=== PATIENT | female | born 1975 | race African-American/Black ===

== ENCOUNTER 2017-05-23 17:51 | Emergency (ER) | payer SELFPAY ==
[2017-05-23 18:34] LABS: #Basophils 0.1 thou/uL (0.0-0.2); #Eosinphils 0.1 thou/uL (0.0-0.7); #Lymphocytes 1.7 thou/uL (1.20-3.40); #Monocytes 0.5 thou/uL (0.11-0.59); #Neutrophils 3.7 thou/uL (1.40-6.50); %Basophils 1.4 % (0.0-1.0); %Eosinophils 2.2 % (0.0-10.0); %Lymphocytes 28.1 % (21.0-51.0); %Monocytes 7.7 % (0.0-10.0); Hematocrit 42.4 % (36.0-47.0); Mean Platelet Volume 6.5 fL (7.4-10.4); Red Blood Cell (RBC) Count 4.53 mill/uL (4.20-5.40); White Blood Cell (WBC) Count 6.1 thou/uL (4.8-10.8)
[2017-05-23 18:56] LABS: ALT (SGPT) 17 U/L (8-55); AST (SGOT) 20 U/L (5-34); Alkaline Phosphatase 86 U/L (40-150); Anion Gap 14 mmol/L (10-20); BUN (Urea Nitrogen) 11 mg/dL (7.0-18.7); Bilirubin, Total 0.3 mg/dL (0.2-1.2); Calc. Creatinine Clearance 0 mL/min (70-130); Calcium 8.9 mg/dL (7.8-10.44); Carbon Dioxide 26 mmol/L (22-29); Chloride 101 mmol/L (98-107); Estimated GFR-MDRD 74; Globulin 3.3 g/dL (2.4-3.5); Protein, Total 7.3 g/dL (6.0-8.3)
[2017-05-23 19:24] LABS: Bilirubin Negative (Negative); Blood, Urine Negative (Negative); Glucose, Urine (Dipstick) Negative (Negative); Ketone, Urine Negative (Negative); Nitrite Negative (Negative); Protein, Urine (Dipstick) Trace mg/dL (Neg-Trace)
[2017-05-23 19:25] LABS: Bacteria/HPF 1+ HPF (None Seen); Hyaline Casts/LPF 4-6 HYALINE CAST LPF (0-3 Hyaline); WBC/HPF 21-50 HPF (0-3)
[2017-05-23] MEDS ORDERED: Lidocaine 1% PF 5 ML VIAL ONE (20:31)
[2017-05-23] MEDS ORDERED: Ondansetron ODT 4 MG TAB ONE (20:31)
[2017-05-23] MEDS ORDERED: cefTRIAXone\\ROCEPHIN 500 MG VIAL ONE (20:40)
== END 2017-05-23 21:05 | disposition home or self-care (01) ==
LOC: ERS 17:51
DX: K52.9 Noninfective gastroenteritis and colitis, unspecified (principal); N39.0 Urinary tract infection, site not specified; F41.9 Anxiety disorder, unspecified; Z87.891 Personal history of nicotine dependence
CPT/HCPCS: 36415; 80053; 81003; 81015; 85025; 96372; 96374; J0696; J2001; Q0162

== ENCOUNTER 2017-10-03 15:26 | Emergency (ER) | payer SELFPAY ==
--- NOTE | 2017-10-03 16:59 | RAD ---
CHEST ONE VIEW: 10/03/17 HISTORY: Cough. FINDINGS: The cardiac silhouette and pulmonary vasculature are unremarkable. Mediastinum is midline. No lobar c onsolidation or evidence of pneumothorax. IMPRESSION: No active cardiopulmonary abnormalities are demonstrated. POS: [facility]
[2017-10-03 18:39] LABS: #Basophils 0.1 thou/uL (0.0-0.2); #Eosinphils 0.2 thou/uL (0.0-0.7); #Lymphocytes 2.8 thou/uL (1.20-3.40); #Monocytes 0.7 thou/uL (0.11-0.59); #Neutrophils 5.6 thou/uL (1.40-6.50); %Basophils 0.7 % (0.0-1.0); %Eosinophils 2.6 % (0.0-10.0); %Lymphocytes 29.8 % (21.0-51.0); %Monocytes 7.4 % (0.0-10.0); %Neutrophils 59.5 % (42.0-75.0); Hemoglobin 14.1 g/dL (12.0-16.0); Mean Corpuscular HGB CONC 32.6 g/dL (32.0-36.0); Mean Corpuscular Hemoglobin 29.9 pg (27.0-31.0); Mean Corpuscular Volume 91.7 fl (81.0-99.0); Mean Platelet Volume 6.4 fL (7.4-10.4); Platelet Count 363 thou/uL (130-400); RBC Distribution Width 11.9 % (11.5-14.5); Red Blood Cell (RBC) Count 4.73 mill/uL (4.20-5.40); White Blood Cell (WBC) Count 9.5 thou/uL (4.8-10.8)
[2017-10-03 19:02] LABS: ALT (SGPT) 15 U/L (8-55); AST (SGOT) 17 U/L (5-34); Albumin 4.2 g/dL (3.5-5.0); Alkaline Phosphatase 89 U/L (40-150); Anion Gap 14 mmol/L (10-20); BUN (Urea Nitrogen) 10 mg/dL (7.0-18.7); Bilirubin, Total 0.4 mg/dL (0.2-1.2); Calc. Creatinine Clearance 0 mL/min (70-130); Calcium 9.8 mg/dL (7.8-10.44); Carbon Dioxide 26 mmol/L (22-29); Chloride 100 mmol/L (98-107); Estimated GFR-MDRD Greater than 90; Globulin 3.3 g/dL (2.4-3.5); Glucose 92 mg/dL (70-105); Potassium 3.8 mmol/L (3.5-5.1); Protein, Total 7.5 g/dL (6.0-8.3); Sodium 136 mmol/L (136-145)
[2017-10-03] MEDS ORDERED: methylPREDNISolone Sod Succ/PF 125 MG/2 ML VIAL ONE (20:59)
[2017-10-03] MEDS ORDERED: cloNIDine 0.1 MG TAB ONE (20:59)
--- NOTE | 2017-10-06 14:39 | EKG ---
Test Reason : HTN Blood Pressure : / mmHG Vent. Rate : 086 BPM Atrial Rate : 086 BPM P-R Int : 134 ms QRS Dur : 092 ms QT Int : 372 ms P-R-T Axes : 060 013 038 degrees QTc Int : 445 ms Sinus rhythm with marked sinus arrhythmia Possible Left atrial enlargement No STEMI Borderline ECG Confirmed by ERNA Dunbar, JAZMIN ([id number]), photo editor SHEMAR ESTRELLA ([id number]) on 10/06/2017 2:38:40 PM Referred By: Confirmed By:JAZMIN UMANZOR M.D.
== END 2017-10-03 22:16 | disposition home or self-care (01) ==
LOC: ERS 15:26
DX: J06.9 Acute upper respiratory infection, unspecified (principal); H65.92 Unspecified nonsuppurative otitis media, left ear; I10 Essential (primary) hypertension; Z87.891 Personal history of nicotine dependence
CPT/HCPCS: 36415; 71045; 80053; 85025; 93005; 94640; 96372; J2930; J7620

== ENCOUNTER 2017-11-24 02:54 | Emergency (ER) | payer SELFPAY ==
[2017-11-24] MEDS ORDERED: Promethazine HCl 25 MG/ML VIAL ONE (03:13)
== END 2017-11-24 07:35 | disposition home or self-care (01) ==
LOC: ERS 02:54
DX: S00.83XA Contusion of other part of head, initial encounter (principal); F10.129 Alcohol abuse with intoxication, unspecified; I10 Essential (primary) hypertension; Z87.891 Personal history of nicotine dependence; Y08.89XA Assault by other specified means, initial encounter
CPT/HCPCS: 96365; 96366; J2550

== ENCOUNTER 2017-12-07 02:12 | Inpatient (IN) | payer SELFPAY ==
[2017-12-07] MEDS ORDERED: Metoprolol Tartrate 5 MG/5 ML VIAL ONE ×2 (02:38→03:38)
[2017-12-07] MEDS ORDERED: hydrALAZINE 20 MG/ML VIAL ONE (03:08)
[2017-12-07 03:12] LABS: BHCG - Serum Negative (NEGATIVE); Pregs Control Background? CLEAR/WHITE (CLR/WHITE); Pregs Control Bar Appear? YES (CONTROL BAR)
[2017-12-07 03:21] LABS: PTT 28.9 SEC (22.9-36.1); Prothrombin Time 13.5 SEC (12.0-14.7)
[2017-12-07 03:23] LABS: ALT (SGPT) 15 U/L (8-55); AST (SGOT) 17 U/L (5-34); Alkaline Phosphatase 92 U/L (40-150); Anion Gap 9 mmol/L (10-20); BUN (Urea Nitrogen) 13 mg/dL (7.0-18.7); Bilirubin, Total 0.2 mg/dL (0.2-1.2); CK (CPK) 139 U/L (29-168); Calc. Creatinine Clearance 0 mL/min (70-130); Calcium 9.4 mg/dL (7.8-10.44); Carbon Dioxide 30 mmol/L (22-29); Chloride 101 mmol/L (98-107); Estimated GFR-MDRD Greater than 90; Glucose 99 mg/dL (70-105); Lipase 22 U/L (8-78); Potassium 3.7 mmol/L (3.5-5.1); Sodium 136 mmol/L (136-145)
[2017-12-07 03:26] LABS: CKMB 1.5 ng/mL (0-6.6); Troponin I 0.014 ng/mL (< 0.028)
[2017-12-07 03:30] LABS: #Basophils 0.1 thou/uL (0.0-0.2); #Eosinphils 0.2 thou/uL (0.0-0.7); #Lymphocytes 2.4 thou/uL (1.20-3.40); #Monocytes 0.6 thou/uL (0.11-0.59); #Neutrophils 4.9 thou/uL (1.40-6.50); %Basophils 0.8 % (0.0-1.0); %Lymphocytes 29.6 % (21.0-51.0); %Monocytes 7.1 % (0.0-10.0); %Neutrophils 60.5 % (42.0-75.0); Hemoglobin 12.9 g/dL (12.0-16.0); Mean Corpuscular HGB CONC 33.7 g/dL (32.0-36.0); Mean Corpuscular Hemoglobin 31.5 pg (27.0-31.0); Mean Corpuscular Volume 93.5 fl (81.0-99.0); Mean Platelet Volume 6.9 fL (7.4-10.4); Platelet Count 366 thou/uL (130-400); RBC Distribution Width 12.1 % (11.5-14.5); Red Blood Cell (RBC) Count 4.11 mill/uL (4.20-5.40)
[2017-12-07 03:30] LABS: Amphetamine Not Detected (NotDetected); Barbiturates Screen Not Detected (NotDetected); Benzodiazepine Screen Not Detected (NotDetected); Cocaine Metabolite Screen Detected (NotDetected); Medtox Control Line Valid? VALID (VALID); Medtox Reader # READER 1; Methadone Not Detected (NotDetected); Methamphetamine Not Detected (NotDetected); Opiate Screen Not Detected (NotDetected); Oxycodone Screen Not Detected (NotDetected); Phencyclidine (PCP) Not Detected (NotDetected); THC/Cannabinoid Screen Detected (NotDetected); Tricyclic Screen Not Detected (NotDetected)
[2017-12-07] MEDS ORDERED: cloNIDine 0.1 MG TAB ONE (04:07)
[2017-12-07] MEDS ORDERED: Labetalol HCl 100 MG/20 ML VIAL ONE (04:56)
[2017-12-07] MEDS ORDERED: niCARdipine 20MG In NaCl 20 MG/200 ML BAG ONE (05:20)
[2017-12-07 06:59] LABS: Troponin I 0.024 ng/mL (< 0.028)
[2017-12-07] MEDS ORDERED: CCU Electrolyte Replacement 1 EACH FS ONE (07:37)
[2017-12-07] MEDS ORDERED: niCARdipine 20MG In NaCl 20 MG/200 ML BAG IVPB PRN (07:41)
[2017-12-07] MEDS ORDERED: Potassium Phosphate 9 MMOL in Sodium Chloride 0.9% 100 ML IVPB PRN (07:47)
[2017-12-07] MEDS ORDERED: Potassium Phosphate 12 MMOL in Sodium Chloride 0.9% 250 ML 250 ML IV PRN (07:47)
[2017-12-07] MEDS ORDERED: Magnesium Oxide 400 MG TAB PO PRN ×2 (07:47)
[2017-12-07] MEDS ORDERED: Potassium Chloride 20 MEQ TAB PO PRN (07:47)
[2017-12-07] MEDS ORDERED: Potassium Phosphate 15 MMOL in Sodium Chloride 0.9% 250 ML 250 ML IV PRN (07:47)
[2017-12-07] MEDS ORDERED: Potassium Chloride 40 MEQ in Premix Bag 1 BAG IVPB PRN (07:47)
[2017-12-07] MEDS ORDERED: Potassium Chloride 40 MEQ in Sodium Chloride 0.9% 250 ML 250 ML IVPB PRN (07:47)
[2017-12-07] MEDS ORDERED: Magnesium 2 GM/NS 0.9% 100 ML 2 GM in Premix Bag 1 BAG IVPB PRN (07:47)
[2017-12-07] MEDS ORDERED: CCU ELECTROLYTE REPLACEMENT PROTOCOL FS PRN (07:47)
--- NOTE | 2017-12-07 08:22 | RAD ---
SINGLE VIEW OF THE CHEST: COMPARISON: 03/05/18. HISTORY: Intermittent chest pain with nausea and shortness of breath. FINDINGS: Single view of the chest shows a normal sized cardiomediastinal silhouette. There is no evidence of c onsolidation, mass, or pleural effusion. The bones are unremarkable. IMPRESSION: No evidence of acute cardiopulmonary disease. POS: [facility]
[2017-12-07] MEDS ORDERED: cloNIDine 0.1 MG TAB PO PRN (08:24)
[2017-12-07] MEDS ORDERED: traMADol HCl 50 MG TAB PO PRN (08:26)
[2017-12-07] MEDS ORDERED: Diabetic Tussin 200 MG/10 ML UDCUP PO PRN (08:26)
[2017-12-07] MEDS ORDERED: Calcium Carbonate 500 MG ChewTAB PO PRN ×2 (08:26)
[2017-12-07] MEDS ORDERED: Bisacodyl 5 MG TAB PO PRN (08:26)
[2017-12-07] MEDS ORDERED: Mag-Al 1200 mg/1200 mg/30 ML UDCUP PO PRN ×2 (08:26)
[2017-12-07] MEDS ORDERED: Lorazepam 1 MG TAB PO PRN (08:26)
[2017-12-07] MEDS ORDERED: Ondansetron HCl/PF 4 MG/2 ML Vial IVP PRN ×2 (08:26)
[2017-12-07] MEDS ORDERED: Acetaminophen 325 MG TAB PO PRN (08:26)
[2017-12-07] MEDS ORDERED: Loratadine 10 MG TAB PO PRN (08:26)
[2017-12-07] MEDS ORDERED: Benzonatate 100 MG CAP PO PRN (08:26)
[2017-12-07] MEDS ORDERED: Senokot 8.6 MG TAB PO PRN (08:26)
[2017-12-07] MEDS ORDERED: Nitroglycerin 0.4 MG TAB (25 Tab Bottle) SL PRN (08:26)
[2017-12-07] MEDS: Amlodipine 10 MG TAB PO SCH (09:38)
[2017-12-07] MEDS: cloNIDine 0.2 MG TAB PO SCH ×2 (09:39→21:01)
[2017-12-07] MEDS: Enoxaparin Sodium 40 MG/0.4 ML SYRINGE SC SCH (09:40)
[2017-12-07 09:42] LABS: Troponin I 0.011 ng/mL (< 0.028)
[2017-12-07] MEDS: niCARdipine HCl 50 MG in Sodium Chloride 0.9% 250 ML 230 ML IVPB SCH ×2 (09:54→18:03)
[2017-12-07 10:23] VITALS: BMI 48.0
--- NOTE | 2017-12-07 12:25 | HP ---
DATE OF ADMISSION: 12/07/2017 PRIMARY CARE PHYSICIAN: None. CHIEF COMPLAINT: Chest pain. HISTORY OF PRESENTING ILLNESS: Ms. Jean Baptiste is a pleasant 42-year-old female with past medical history of hypertension who was rather noncompliant with any medical care and medications, came to the emerg ency room with above-mentioned complaint. History is mainly obtained by the patient herself and [facility] medical records have been reviewed. According to Ms. Jean Baptiste, she has been having episodes of sharp chest pain located in the center of th e chest for approximately last 2 or 3 days. She has had these symptoms in the past, but not this sev ere. She had multiple episodes yesterday each lasting about 15 minutes. She cannot recall any exace rbating or relieving factors. They occur both at rest as well as with exertion. It was associated w ith nausea, shortness of breath and the pain radiated to both of her arms. She denies any recent ill nesses. She denies any headache, vision changes, vomiting. She denies any abdominal pain or diarrhe a. She denies any orthopnea, PND or lower extremity swelling. She tells me that she is supposed to be on some blood pressure medications and has not taken them in a while. Upon presentation to the emergency room, she was found to have significant hypertension with blood pr essure of 229/146. She was given nitro paste 1 inch as well as sublingual nitroglycerin and aspirin by EMS and was brought to the emergency room. In the ER, further workup included a 12-lead EKG and f urther control of her blood pressure. The EKG was unremarkable except for possible left atrial enlar gement. She was given IV labetalol, IV Lopressor, IV hydralazine and clonidine oral and eventually h ad to be started on Cardene drip and the blood pressure remained dangerously high. Her blood work wa s rather unremarkable. Serial cardiac enzymes were drawn and were negative. Her urine drug screen; however, did come back positive for cocaine and marijuana. She is now being admitted to the Critical Care Unit with hypertensive urgency which is likely leading to presenting symptom of chest pain. PAST MEDICAL HISTORY: Hypertension. PAST SURGICAL HISTORY: Tubal ligation. PSYCHIATRIC: No anxiety and no depression. SOCIAL HISTORY: She abuses marijuana, but denies everyday use of cocaine. She does not smoke cigare ttes and has minimal alcohol intake. FAMILY HISTORY: Her mother about a year ago and she is feeling quite stressed out as she feels that her family depend on her. Significant for diabetes in multiple family members. Her mother of heart attack last year and before that she has had triple bypass. ALLERGIES: No known medication allergies. CURRENT MEDICATIONS: None. The patient was supposed to be taking clonidine which she has not taken in the last week or so. REVIEW OF SYSTEMS: The following complete review of systems was negative, unless otherwise mentioned in the HPI or below: Constitutional: Weight loss or gain, ability to conduct usual activities. Skin: Rash, itching. Eyes: Double vision, pain. ENT/Mouth: Nose bleeding, neck stiffness, pain, tenderness. Cardiovascular: Palpitations, dyspnea on exertion, orthopnea. Respiratory: Shortness of breath, wheezing, cough, hemoptysis, fever or night sweats. Gastrointestinal: Poor appetite, abdominal pain, heartburn, nausea, vomiting, constipation, or diarr hea. Genitourinary: Urgency, frequency, dysuria, nocturia. Musculoskeletal: Pain, swelling. Neurologic/Psychiatric: Anxiety, depression. Allergy/Immunologic: Skin rash, bleeding tendency. A 12 point review of systems is done and it is negative except for those mentioned in the history and physical. LABORATORY DATA AND IMAGING DATA: 1. CBC is unremarkable. 2. Coagulation studies within normal limit. 3. Serum chemistry show bicarbonate 30, otherwise unremarkable. Blood sugar is 90. Liver enzymes n ormal. Cardiac enzymes, troponin 0.014 with repeat troponin of 0.024 and 0.011. CK-MB and creatinin e kinase is normal. Lipase is normal. Serum test is negative. Urine drug screen is posit martin for cocaine and cannabinoids. 4. Chest x-ray by my review shows mild cardiomegaly, otherwise no acute cardiopulmonary abnormalitie s. 5. There is no pulmonary vascular congestion or infiltrate. 6. Twelve lead EKG by my review shows sinus rhythm at 91 beats per minute, possible left atrial enla rgement. PHYSICAL EXAMINATION: VITAL SIGNS: Most recent blood pressure 129/88, temperature 97.8, heart rate 79, respirations 20, an d oxygen saturation 97% on room air. GENERAL: No acute distress, awake, alert, oriented x3. HEENT: Mucous membrane is moist and pink. No oropharyngeal exudate or erythema. Head is normocepha lic, atraumatic. Pupils are equal, reactive to light and accommodation. Extraocular movement intact . NECK: Supple without any lymphadenopathy, JVD or bruit. CHEST: Clear to auscultation without any wheezing, rales or rhonchi. Rate and rhythm is regular wit hout any murmur, rubs or gallops. ABDOMEN: Morbidly obese, soft, nontender, nondistended with positive bowel sounds. EXTREMITIES: Free of any cyanosis, clubbing, or edema. NEUROLOGIC: Examination is nonfocal. SKIN: Free of any rashes or bruises. I feel warm and dry to touch. PSYCHIATRIC: Anxiety noticed. IMPRESSION AND PLAN: 1. Uncontrolled hypertension with hypertensive urgency. The patient will be continued on Cardgail thurman at this time and will be monitored in the critical care unit with slow taper. We will titrate the blood pressure slowly down. She has been started on oral antihypertensives including Norvasc and cl onidine and we will continue that for now. Avoid any beta florentin to avoid further unopposed alpha-a drenergic stimulation. P.r.n. antihypertensives have also been ordered. We will request consultatio n with Critical Care physicians while she is in the CCU. Dr. Wise has already seen and evaluated the patient this morning. 2. Chest pain. This is secondary to #1. Serial cardiac enzymes have been done and are negative. A t this time, we will provide gentle lowering of the blood pressure and monitor her symptoms. There i s no evidence to suggest ACS at this time clinically. 3. Morbid obesity. The patient has been extensively counseled about lifestyle modification. Her BM I is 48.1. 4. Cocaine abuse. Once again, I discussed this extensively with the patient and she is very eager t o quit. She does not do it on a daily basis according to her, but has been undergoing a lot of stres s. I encouraged her to get back with her primary care physician after hospital discharge. 5. Deep venous thrombosis and gastrointestinal prophylaxis. DISPOSITION: Ms. Jean Baptiste is being admitted for hypertensive urgency leading to chest pain at this [facility]. Estimated length of stay is at least 2-3 midnights. Further management will depend upon her clin ica course.
--- NOTE | 2017-12-07 14:22 | CON ---
DATE OF CONSULTATION: 12/07/2017 CONSULTING PHYSICIAN: Dr[facility]. REASON FOR CONSULTATION: ICU management. HISTORY OF PRESENT ILLNESS: Ms. Jean Baptiste is a 42-year-old black female who presented to the hospital l ast night with chest pain that have been going on for about three days. She is somewhat reluctant to admit it, but she has been using cocaine intermittently for quite some time. She has also been usin g ecstasy some. She has been told she has high blood pressure in the past, but has not been able to get to the clinic to get a prescription for her medication. PAST MEDICAL HISTORY: 1. Hypertension. 2. Illicit drug use. PAST SURGICAL HISTORY: Tubal ligation. PSYCHIATRIC HISTORY: Unremarkable. SOCIAL HISTORY: Uses cocaine, marijuana, quit smoking cigarettes 2 months ago. Occasionally drinks alcohol. She works as a hairdresser. ALLERGIES: None. MEDICATIONS: She was supposed to be taking clonidine prior to admission. REVIEW OF SYSTEMS: Twelve-point review of systems otherwise negative. PHYSICAL EXAMINATION: VITAL SIGNS: Blood pressure 179/112, pulse 92, respirations 18, temperature 98.0, O2 sat 98% room ai r. GENERAL: She is awake, alert, and in no distress. HEENT: Pupils are reactive. Funduscopic exam shows no hemorrhage. Oropharynx clear. NECK: No adenopathy or JVD, no bruits. LUNGS: Clear without wheezing or rhonchi. CARDIAC: S1, S2 regular. No audible murmur, rub or gallop. ABDOMEN: Soft, obese, nontender, nondistended. No hepatosplenomegaly. EXTREMITIES: No clubbing, cyanosis, or edema. NEUROLOGIC: Nonfocal throughout. SKIN: Shows no lesions, bruising or jaundice. LABORATORY DATA AND IMAGING DATA: Sodium 136, potassium 3.7, chloride 101, CO2 30, BUN 13, creatinin e 0.7, glucose 99. Troponin 0.024. INR 1.0, PTT 28.9, white blood cell count 8, hematocrit 38.4, pl atelet count 366. Her EKG demonstrates no acute ST-T wave changes. Chest x-ray shows no cardiomegal y, no mass, effusion or infiltrate. ASSESSMENT: Hypertension, out of control and not necessarily in the emergency in my opinion. RECOMMENDATIONS: 1. I would recommend slowly wean her off the Cardene drip. 2. Start Norvasc. 3. Start clonidine.
[2017-12-08 05:00] LABS: Anion Gap 9 mmol/L (10-20); BUN (Urea Nitrogen) 9 mg/dL (7.0-18.7); Calc. Creatinine Clearance 214 mL/min (70-130); Calcium 8.6 mg/dL (7.8-10.44); Carbon Dioxide 26 mmol/L (22-29); Chloride 103 mmol/L (98-107); Estimated GFR-MDRD Greater than 90; Glucose 103 mg/dL (70-105); Potassium 3.7 mmol/L (3.5-5.1); Sodium 134 mmol/L (136-145)
[2017-12-08] MEDS: Enoxaparin Sodium 40 MG/0.4 ML SYRINGE SC SCH (08:02)
[2017-12-08] MEDS: cloNIDine 0.2 MG TAB PO SCH ×2 (08:02→20:22)
[2017-12-08] MEDS: Amlodipine 10 MG TAB PO SCH (08:02)
--- NOTE | 2017-12-08 11:16 | PRG ---
DATE OF SERVICE: 12/08/2017 SUBJECTIVE: She is doing well. She is off the Cardene drip. She is having no chest pain. PHYSICAL EXAMINATION: VITAL SIGNS: Temperature is 98, pulse 76, blood pressure 109/80. HEENT: Unremarkable. NECK: No JVD. CHEST: Clear without wheezing. CARDIAC: S1 and S2 regular. ABDOMEN: Soft. EXTREMITIES: No edema. LABORATORY DATA: Sodium 134, potassium 3.7, chloride 103, CO2 of 26, BUN 9, creatinine 0.6, glucose 103. ASSESSMENT: 1. Malignant hypertension. 2. Cocaine abuse. PLAN: The patient can be transferred out to the medical floor. Continue Norvasc and clonidine, can likely go home by tomorrow. We will sign off. Please recall if further assistance needed.
--- NOTE | 2017-12-08 15:00 | PDOC.PN ---
- Subjective Encounter Start Date: 12/08/17 Encounter Start Time: 11:20 Subjective: feels better -: mild headache, no chest pain or sob - Objective MAR Reviewed: Yes Vital Signs & Weight: Vital Signs (12 hours) Temp Pulse Resp BP BP Pulse Ox 12/08/17 12:00 97.7 F 76 14 137/99 H 95 12/08/17 11:30 97.7 F 76 14 95 12/08/17 09:00 16 12/08/17 08:02 78 157/89 H 12/08/17 08:00 98.7 F 74 18 99 Most Recent Monitor Data Heart Rate from ECG 68 NIBP 138/84 NIBP BP-Mean 99 Respiration from ECG 17 SpO2 98 I&O: 12/07/17 12/08/17 12/09/17 06:59 06:59 06:59 Intake Total 2048 480 Output Total 2320 Balance -272 480 Result Diagrams: 12/07/17 02:46 12/08/17 04:27 Phys Exam - Physical Examination HEENT: PERRLA, moist MMs Neck: no JVD, supple Respiratory: no wheezing, no rales Cardiovascular: RRR, no significant murmur Gastrointestinal: soft, non-tender, no distention, positive bowel sounds Musculoskeletal: no edema, pulses present Neurological: non-focal, moves all 4 limbs Psychiatric: normal affect, A&O x 3 Dx/Plan (1) Malignant essential hypertension Code(s): I10 - ESSENTIAL (PRIMARY) HYPERTENSION Status: Resolved (2) Substance abuse Code(s): F19.10 - OTHER PSYCHOACTIVE SUBSTANCE ABUSE, UNCOMPLICATED Status: Acute Comment: cocaine, thc (3) H/O medication noncompliance Code(s): Z91.14 - PATIENT'S OTHER NONCOMPLIANCE WITH MEDICATION REGIMEN Status : Chronic (4) Morbid obesity with BMI of 45.0-49.9, adult Code(s): E66.01 - MORBID (SEVERE) OBESITY DUE TO EXCESS CALORIES; Z68.42 - BODY MASS INDEX (BMI) 45.0-49.9, ADULT Status: Chronic - Plan is on norvasc, clonidine -: off cardene drip from early am -: to amb as tolerated -: counselled reg med compliance -: dc plan in am * . Review of Systems - Medications/Allergies Allergies/Adverse Reactions: Allergies Allergy/AdvReac Type Severity Reaction Status Date / Time No Known Allergies Allergy Unverified 12/07/17 07:36 Medications: Current Medications Acetaminophen (Tylenol) 650 mg PO Q4H PRN PRN Reason: Headache/Fever or Pain Last Admin: 12/08/17 08:01 Dose: 650 mg Al Hydroxide/Mg Hydroxide (Maalox) 30 ml PO Q6H PRN PRN Reason: Heartburn or Indigestion Al Hydroxide/Mg Hydroxide (Maalox) 15 ml PO Q4H PRN PRN Reason: Heartburn or Indigestion Amlodipine Besylate (Norvasc) 10 mg PO DAILY [facility] Last Admin: 12/08/17 08:02 Dose: 10 mg Benzonatate (Tessalon) 100 mg PO Q4H PRN PRN Reason: Cough Bisacodyl (Dulcolax) 10 mg PO DAILYPRN PRN PRN Reason: Constipation Calcium Carbonate (Tums) 1,000 mg PO Q4H PRN PRN Reason: Heartburn or Indigestion Clonidine (Catapres) 0.2 mg PO BID [facility] Last Admin: 12/08/17 08:02 Dose: 0.2 mg Clonidine (Catapres) 0.1 mg PO Q4H PRN PRN Reason: SBP>160 Enoxaparin Sodium (Lovenox) 40 mg SC 0900 [facility] Last Admin: 12/08/17 08:02 Dose: 40 mg Guaifenesin (Robitussin Sf) 200 mg PO Q4H PRN PRN Reason: Cough Hydralazine HCl (Apresoline) 10 mg SLOW IVP Q4H PRN PRN Reason: SBP>170 Loratadine (Claritin) 10 mg PO DAILYPRN PRN PRN Reason: Sinus Symptoms Lorazepam (Ativan) 1 mg PO Q4H PRN PRN Reason: Anxiety/Agitation Nitroglycerin (Nitrostat) 0.4 mg SL Q5MIN PRN PRN Reason: Chest Pain Ccu Electrolyte (Replacement Protocol) 0 each FS PRN PRN PRN Reason: FOR ELECTROLYTE REPLACEMENT Ondansetron HCl (Zofran) 4 mg IVP Q6H PRN PRN Reason: Nausea/Vomiting Ondansetron HCl (Zofran) 4 mg IVP Q6H PRN PRN Reason: Nausea/Vomiting Pantoprazole Sodium (Protonix) 40 mg PO DAILY [facility] Last Admin: 12/08/17 08:02 Dose: 40 mg Senna (Senokot) 2 tab PO HSPRN PRN PRN Reason: Constipation Tramadol HCl (Ultram) 50 mg PO Q4H PRN PRN Reason: Moderate Pain (4-6)
[2017-12-08] MEDS: hydrALAZINE 20 MG/ML VIAL SLOW IVP PRN (20:22)
[2017-12-09] MEDS: hydrALAZINE 20 MG/ML VIAL SLOW IVP PRN (05:57)
[2017-12-09] MEDS: Enoxaparin Sodium 40 MG/0.4 ML SYRINGE SC SCH (08:43)
[2017-12-09] MEDS: Amlodipine 10 MG TAB PO SCH (08:43)
[2017-12-09] MEDS: cloNIDine 0.2 MG TAB PO SCH (08:43)
[2017-12-09] MEDS ORDERED: Hydrochlorothiazide 25 MG TAB PO SCH (09:00)
--- NOTE | 2017-12-09 12:05 | PDOC.PN ---
- Subjective Encounter Start Date: 12/09/17 Encounter Start Time: 07:30 Subjective: feels a bit anxious, no chest pain or sob -: is amb in room - Objective MAR Reviewed: Yes Vital Signs & Weight: Vital Signs (12 hours) Temp Pulse Resp BP BP BP Pulse Ox 12/09/17 08:43 81 141/101 H 12/09/17 08:00 98.0 F 81 18 97 12/09/17 07:21 98.0 F 81 18 148/100 H 97 12/09/17 05:57 79 141/101 H 12/09/17 05:44 97.7 F 79 20 141/101 H 98 12/09/17 04:10 151/91 H Most Recent Monitor Data Heart Rate from ECG 68 NIBP 138/84 NIBP BP-Mean 99 Respiration from ECG 17 SpO2 98 I&O: 12/08/17 12/09/17 12/10/17 06:59 06:59 06:59 Intake Total 2047 1989 Output Total 0 Balance -272 1989 Result Diagrams: 12/07/17 02:46 12/08/17 04:27 Phys Exam - Physical Examination HEENT: PERRLA, moist MMs Neck: no JVD, supple Respiratory: no wheezing, no rales Cardiovascular: RRR, no significant murmur Gastrointestinal: soft, non-tender, positive bowel sounds Musculoskeletal: no edema, pulses present Neurological: non-focal, moves all 4 limbs Psychiatric: normal affect, A&O x 3 Dx/Plan (1) Malignant essential hypertension Code(s): I10 - ESSENTIAL (PRIMARY) HYPERTENSION Status: Resolved (2) Substance abuse Code(s): F19.10 - OTHER PSYCHOACTIVE SUBSTANCE ABUSE, UNCOMPLICATED Status: Acute Comment: cocaine, thc (3) H/O medication noncompliance Code(s): Z91.14 - PATIENT'S OTHER NONCOMPLIANCE WITH MEDICATION REGIMEN Status : Chronic (4) Morbid obesity with BMI of 45.0-49.9, adult Code(s): E66.01 - MORBID (SEVERE) OBESITY DUE TO EXCESS CALORIES; Z68.42 - BODY MASS INDEX (BMI) 45.0-49.9, ADULT Status: Chronic - Plan hemostable -: htn is better controlled -: dc pt home this noon if she is feeling good -[facility] * .
[2017-12-09 12:31] VITALS: BP 149/103; TEMP 98.3
--- NOTE | 2017-12-09 21:34 | DIS ---
DATE OF ADMISSION: 12/07/2017 DATE OF DISCHARGE: 12/09/2017 DISCHARGE DISPOSITION: To home. PRIMARY DISCHARGE DIAGNOSES: 1. Hypertensive emergency on admission, resolved. 2. Noncompliance with medications. 3. Substance abuse. 4. Morbid obesity. PROCEDURES DONE DURING HOSPITALIZATION: Chest x-ray done on the day of admission showed no acute cardiopulmonary process. H&H 12 and 38, platelet count 366. BUN 9, creatinine 0.6. Troponin x3 was negative. Serum test was negative. Urine drug screen was positive for cocaine and cannabinoids. INPATIENT CONSULTS: Dr. Wise for pulmonary critical care. DISCHARGE PLAN: The patient to follow up with primary care physician in 1 week. DISCHARGE MEDICATIONS: Norvasc 10 mg p.o. daily, clonidine 0.2 mg p.o. twice daily, hydrochlorothiazide 25 mg p.o. daily. ALLERGIES: No known drug allergies. BRIEF COURSE DURING HOSPITALIZATION: The patient initially got admitted on the with complaints of chest pain. The patient's blood pressure was 229/146 on arrival. She was placed on nitroglycerin drip and admitted to ICU after multiple medications to bring her pressure down in the ER failed. Urine drug screen was positive for cocaine and marijuana. The patient has a known history of hypertension and has been noncompliant on medications. She has had slow titration of her blood pressure down with complete resolution of chest pain. Prior to discharge, she is ambulating and eating well. She has been counseled with regards to substance abuse. Her medications were optimized. She has been counseled to be compliant with medications. Please see a [id number] documentation on [facility] for the day of discharge. SOHAN
== END 2017-12-09 14:33 | disposition home or self-care (01) | DRG 305 ==
LOC: ERS 02:12 → 2SW 04:27 → OBSVTOIN 04:27 → ERHOLD 06:20 → CCU 06:35 → T4-B 12-08 11:00
PROVIDERS: ADMIT Family Medicine; ATTEND Family Medicine
DX: I16.1 Hypertensive emergency (principal); Z68.42 Body mass index [BMI] 45.0-49.9, adult; Z91.14 Patient's other noncompliance with medication regimen; E66.01 Morbid (severe) obesity due to excess calories; I10 Essential (primary) hypertension; F14.10 Cocaine abuse, uncomplicated; F17.211 Nicotine dependence, cigarettes, in remission
CPT/HCPCS: 36415; 71045; 80048; 80053; 80306; 82553; 83690; 84484; 84703; 85025; 85610; 85730; 93005; 96365; 96375; 96376; J0360; J1650; J7050

== ENCOUNTER 2019-02-18 13:27 | Emergency (ER) | payer SELFPAY ==
[2019-02-18] MEDS ORDERED: Ketorolac Tromethamine 30 MG/ML VIAL ONE (15:13)
--- NOTE | 2019-02-18 15:42 | RAD ---
RIGHT HIP TWO VIEWS: HISTORY: Right leg pain. Aching and numbness in the toes with burning and tingling. COMPARISON: None. FINDINGS: There is no evidence of a fracture, dislocation, or other osseous abnormality involving the right hip . A phlebolith overlies the right hemipelvis. IMPRESSION: No acute osseous abnormality. POS: [facility]
== END 2019-02-18 15:53 | disposition home or self-care (01) ==
LOC: ERS 13:27
DX: M25.552 Pain in left hip (principal); I10 Essential (primary) hypertension; F41.9 Anxiety disorder, unspecified; Z79.899 Other long term (current) drug therapy
CPT/HCPCS: 96372; J1885

== ENCOUNTER 2019-04-09 10:05 | Outpatient (CLI) | payer MEDICAID ==
--- NOTE | 2019-04-09 15:20 | MMO ---
Bilateral MAMMO Bilat Screen DDI. CLINICAL HISTORY: Patient is 43 years old and is seen for screening. The patient has the following family history of breast cancer: mother, at age 40, malignant (generic). The patient has no personal history of cancer. VIEWS: The views performed were: bilateral craniocaudal and bilateral mediolateral oblique. This study has been interpreted with the assistance of computer-aided detection. MAMMOGRAM FINDINGS: There are scattered fibroglandular densities. Benign calcifications are noted bilaterally. There are no suspicious masses, suspicious calcifications, or new areas of architectural distortion. IMPRESSION: THERE IS NO MAMMOGRAPHIC EVIDENCE OF MALIGNANCY. A ROUTINE FOLLOW-UP MAMMOGRAM IN 1 YEAR IS RECOMMENDED. ACR BI-RADS Category 2 - Benign finding MAMMOGRAPHY NOTE: 1. A negative mammogram report should not delay a biopsy if a dominant of clinically suspicious mass is present. 2. Approximately 10% to 15% of breast cancers are not detected by mammography. 3. Adenosis and dense breasts may obscure an underlying neoplasm. Reported by: LAVERN GONZALEZ MD Electonically Signed: [id number]
== END 2019-04-09 10:06 | disposition home or self-care (01) ==
LOC: BICMAMMO 10:05
DX: Z12.31 Encounter for screening mammogram for malignant neoplasm of breast (principal); Z80.3 Family history of malignant neoplasm of breast
CPT/HCPCS: 77067

== ENCOUNTER 2019-08-21 15:18 | Emergency (ER) | payer BC, MEDICAID ==
[2019-08-21 15:55] LABS: #Basophils 0.1 thou/uL (0.0-0.2); #Eosinphils 0.1 thou/uL (0.0-0.7); #Lymphocytes 2.7 thou/uL (1.20-3.40); #Monocytes 0.4 thou/uL (0.11-0.59); #Neutrophils 4.1 thou/uL (1.40-6.50); %Basophils 1.5 % (0.0-1.0); %Lymphocytes 36.1 % (21.0-51.0); %Monocytes 5.7 % (0.0-10.0); %Neutrophils 54.8 % (42.0-75.0); Hemoglobin 12.8 g/dL (12.0-16.0); Mean Corpuscular HGB CONC 32.4 g/dL (32.0-36.0); Mean Corpuscular Hemoglobin 30.2 pg (27.0-31.0); Mean Corpuscular Volume 93.2 fL (78.0-98.0); Mean Platelet Volume 7.2 fL (7.4-10.4); Platelet Count 322 thou/uL (130-400); RBC Distribution Width 10.9 % (11.5-14.5); Red Blood Cell (RBC) Count 4.25 mill/uL (4.20-5.40); White Blood Cell (WBC) Count 7.5 thou/uL (4.8-10.8)
--- NOTE | 2019-08-21 16:04 | RAD ---
FRONTAL RADIOGRAPH CHEST: 08/21/19 COMPARISON: 12/07/17. HISTORY: Dizziness with chest discomfort. FINDINGS: There is mild prominence of the cardiac silhouette with no pneumothorax, pleural fluid, focal consoli dation, or alveolar edema. IMPRESSION: No acute findings. POS: [facility]
[2019-08-21 16:20] LABS: ALT (SGPT) 17 U/L (8-55); AST (SGOT) 25 U/L (5-34); Albumin 3.9 g/dL (3.5-5.0); Alkaline Phosphatase 75 U/L (40-110); Anion Gap 8 mmol/L (10-20); BUN (Urea Nitrogen) 10 mg/dL (7.0-18.7); Bilirubin, Total 0.2 mg/dL (0.2-1.2); CK (CPK) 473 U/L (29-168); Calc. Creatinine Clearance 0 mL/min (70-130); Calcium 8.9 mg/dL (7.8-10.44); Carbon Dioxide 32 mmol/L (22-29); Chloride 104 mmol/L (98-107); Estimated GFR-MDRD Greater than 90; Globulin 2.4 g/dL (2.4-3.5); Glucose 97 mg/dL (70-105); Potassium 3.9 mmol/L (3.5-5.1); Protein, Total 6.3 g/dL (6.0-8.3); Sodium 140 mmol/L (136-145)
[2019-08-21] MEDS ORDERED: Nitroglycerin 2% Ointment 1 INCH/1 GM Packet ONE (18:53)
[2019-08-21] MEDS ORDERED: Aspirin Chewable 81 MG TAB ONE (18:53)
[2019-08-21 20:15] LABS: Bilirubin Negative (Negative); Blood, Urine Negative (Negative); Clarity Clear (Clear); Glucose, Urine (Dipstick) Normal (Negative); Leukocyte Negative Leu/uL (Negative); Nitrite Negative (Negative); Protein, Urine (Dipstick) Negative (Neg-Trace); Urobilinogen Normal mg/dL (Less than 2)
[2019-08-21] MEDS ORDERED: Acetaminophen 500 MG TAB ONE (20:59)
[2019-08-21 21:30] LABS: Troponin I Less than 0.010 ng/mL (< 0.028)
[2019-08-21] MEDS ORDERED: Meclizine HCl 25 MG TAB ONE (21:30)
== END 2019-08-21 21:54 | disposition home or self-care (01) ==
LOC: ERS 15:18
DX: R55 Syncope and collapse (principal); R07.9 Chest pain, unspecified; I10 Essential (primary) hypertension; F41.9 Anxiety disorder, unspecified; Z87.891 Personal history of nicotine dependence; Z71.6 Tobacco abuse counseling; Z79.899 Other long term (current) drug therapy
CPT/HCPCS: 36415; 71045; 80053; 81003; 82550; 83690; 84484; 85025; 93005; 99406; J8597

== ENCOUNTER 2022-01-05 13:05 | Emergency (ER) | payer BC, SELFPAY | END 2022-01-05 14:55 | disposition home or self-care (01) | LOC: ERS 13:05 | DX: S62.622A Displaced fracture of middle phalanx of right middle finger, initial encounter for closed fracture (principal); L01.00 Impetigo, unspecified; I10 Essential (primary) hypertension; W57.XXXA Bitten or stung by nonvenomous insect and other nonvenomous arthropods, initial encounter; Z79.899 Other long term (current) drug therapy ==

== ENCOUNTER 2022-02-05 15:43 | Inpatient (IN) | payer SELFPAY ==
[2022-02-05 15:57] LABS: #Monocytes 0.4 thou/uL (0.11-0.59); #Neutrophils 13.4 thou/uL (1.40-6.50); %Basophils 0.1 % (0.0-1.0); %Eosinophils 0.1 % (0.0-10.0); %Lymphocytes 12.7 % (21.0-51.0); %Monocytes 2.3 % (0.0-10.0); %Neutrophils 84.9 % (42.0-75.0); Hemoglobin 14.6 g/dL (12.0-16.0); Mean Corpuscular HGB CONC 33.4 g/dL (32.0-36.0); Mean Corpuscular Hemoglobin 31.5 pg (27.0-31.0); Mean Corpuscular Volume 94.3 fL (78.0-98.0); Mean Platelet Volume 6.7 fL (7.4-10.4); Platelet Count 507 thou/uL (130-400); RBC Distribution Width 12.3 % (11.5-14.5); Red Blood Cell (RBC) Count 4.64 mill/uL (4.20-5.40); White Blood Cell (WBC) Count 15.8 thou/uL (4.8-10.8)
[2022-02-05] MEDS ORDERED: Morphine 4 MG/ML VIAL ONE (16:01)
[2022-02-05] MEDS ORDERED: Labetalol HCl 100 MG/20 ML VIAL ONE (16:01)
[2022-02-05 16:06] LABS: BHCG - Serum Negative (NEGATIVE); Pregs Control Background? CLEAR/WHITE (CLR/WHITE); Pregs Control Bar Appear? YES (CONTROL BAR)
[2022-02-05 16:16] LABS: ALT (SGPT) 14 U/L (8-55); AST (SGOT) 19 U/L (5-34); Albumin 4.5 g/dL (3.5-5.0); Alkaline Phosphatase 93 U/L (40-110); Anion Gap 22 mmol/L (10-20); BUN (Urea Nitrogen) 9 mg/dL (7.0-18.7); Bilirubin, Total 0.2 mg/dL (0.2-1.2); Calc. Creatinine Clearance 0 mL/min (70-130); Calcium 9.9 mg/dL (7.8-10.44); Carbon Dioxide 21 mmol/L (22-29); Chloride 102 mmol/L (98-107); Estimated GFR 78; Globulin 3.8 g/dL (2.4-3.5); Glucose 149 mg/dL (70-105); Lipase 9 U/L (8-78); Protein, Total 8.3 g/dL (6.0-8.3); Sodium 141 mmol/L (136-145)
[2022-02-05] MEDS ORDERED: niCARdipine 25 MG/10 ML VIAL ONE (17:08)
[2022-02-05 18:50] LABS: Troponin I 0.157 ng/mL (< 0.028)
[2022-02-05 19:29] LABS: SARS-CoV-2 NAA Rapid Test DETECTED (NotDetected)
[2022-02-05] MEDS: niCARdipine 25 MG in Sodium Chloride 0.9% 250 ML 250 ML IVPB PRN (20:30)
[2022-02-05 20:53] LABS: Lactic Acid 1.3 mmol/L (0.5-2.2)
[2022-02-05] MEDS: Sodium Chloride 0.9% 1,000 ML IV SCH (21:07)
[2022-02-05] MEDS: Acetaminophen 325 MG TAB PO PRN (21:24)
[2022-02-05] MEDS: Nitroglycerin 0.4 MG TAB (25 Tab Bottle) SL PRN (21:28)
[2022-02-05 21:58] VITALS: BMI 39.8
[2022-02-05] MEDS ORDERED: Morphine 4 MG/ML VIAL SLOW IVP PRN (23:07)
[2022-02-05] MEDS ORDERED: Enoxaparin Sodium 120 MG/0.8 ML SYRINGE SC SCH (23:15)
[2022-02-05 23:43] LABS: Bilirubin Negative (Negative); Blood, Urine Negative (Negative); Clarity Clear (Clear); Glucose, Urine (Dipstick) Normal (Negative); Ketone, Urine 60 mg/dL (Negative); Leukocyte 75 Leu/uL (Negative); Nitrite 2+ (Negative); Protein, Urine (Dipstick) 10 mg/dL (Neg-Trace); RBC/HPF 0-3 HPF (0-3); Specific Gravity, Urine 1.019 (1.002-1.036); Squamous Epithelial 0-3 HPF (0-3); Urobilinogen Normal mg/dL (Less than 2); WBC/HPF 21-50 HPF (0-3)
[2022-02-05 23:45] LABS: Bacteria/HPF 1+ HPF (None Seen)
[2022-02-06] MEDS: niCARdipine 25 MG in Sodium Chloride 0.9% 250 ML 250 ML IVPB PRN ×5 (00:47→13:26)
[2022-02-06] MEDS: Nitroglycerin 0.4 MG TAB (25 Tab Bottle) SL PRN ×2 (02:48→02:55)
[2022-02-06 03:39] LABS: #Lymphocytes 3.1 thou/uL (1.20-3.40); #Monocytes 1.1 thou/uL (0.11-0.59); #Neutrophils 10.2 thou/uL (1.40-6.50); %Eosinophils 0.2 % (0.0-10.0); %Lymphocytes 21.5 % (21.0-51.0); %Monocytes 7.5 % (0.0-10.0); %Neutrophils 70.7 % (42.0-75.0); Mean Corpuscular HGB CONC 32.7 g/dL (32.0-36.0); Mean Corpuscular Hemoglobin 31.2 pg (27.0-31.0); Mean Corpuscular Volume 95.7 fL (78.0-98.0); Mean Platelet Volume 7.2 fL (7.4-10.4); Platelet Count 383 thou/uL (130-400); RBC Distribution Width 12.4 % (11.5-14.5); Red Blood Cell (RBC) Count 4.17 mill/uL (4.20-5.40); White Blood Cell (WBC) Count 14.5 thou/uL (4.8-10.8)
[2022-02-06 04:02] LABS: ALT (SGPT) 15 U/L (8-55); AST (SGOT) 51 U/L (5-34); Alkaline Phosphatase 79 U/L (40-110); Anion Gap 14 mmol/L (10-20); BUN (Urea Nitrogen) 8 mg/dL (7.0-18.7); Bilirubin, Total 0.4 mg/dL (0.2-1.2); Calc. Creatinine Clearance 166 mL/min (70-130); Calcium 9.1 mg/dL (7.8-10.44); Carbon Dioxide 25 mmol/L (22-29); Chloride 103 mmol/L (98-107); Estimated GFR 100; Globulin 3.3 g/dL (2.4-3.5); Glucose 113 mg/dL (70-105); Potassium 3.4 mmol/L (3.5-5.1); Protein, Total 7.3 g/dL (6.0-8.3); Sodium 139 mmol/L (136-145)
[2022-02-06] MEDS ORDERED: Acetaminophen 500 MG TAB PO SCH (07:45)
[2022-02-06] MEDS ORDERED: Guaifenesin DM 100-10/5 ML UDCUP PO PRN (07:47)
[2022-02-06] MEDS ORDERED: Benzonatate 100 MG CAP PO PRN (07:47)
[2022-02-06 07:53] LABS: Magnesium 1.9 mg/dL (1.6-2.6)
[2022-02-06] MEDS: Acetaminophen 325 MG TAB PO PRN (07:54)
[2022-02-06] MEDS: cefTRIAXone\\ROCEPHIN 1 GM in Sodium Chloride 0.9% 100 ML IVPB SCH (07:57)
[2022-02-06] MEDS: Metoprolol Tartrate 5 MG/5 ML VIAL IVP SCH ×2 (07:57→13:27)
[2022-02-06] MEDS: Ascorbic Acid 500 mg Chewable Tablet PO SCH (08:00)
[2022-02-06] MEDS: Cholecalciferol 1,000 UNITS (25 MCG) TAB PO SCH (08:02)
[2022-02-06] MEDS: Zinc Sulfate 220 MG CAP PO SCH (08:02)
[2022-02-06] MEDS: Aspirin 81 mg Enteric Coated Tablet PO SCH (08:03)
[2022-02-06 08:09] LABS: BHCG - Serum Negative (NEGATIVE); Pregs Control Background? CLEAR/WHITE (CLR/WHITE); Pregs Control Bar Appear? YES (CONTROL BAR)
[2022-02-06] MEDS: Enoxaparin Sodium 120 MG/0.8 ML SYRINGE SC SCH ×2 (08:11→21:11)
[2022-02-06] MEDS ORDERED: Magnesium 2 GM/50 ML(in water) 2 GM in Premix Bag 1 BAG IVPB SCH (08:15)
[2022-02-06 08:36] LABS: Troponin I 6.883 ng/mL (< 0.028)
[2022-02-06] MEDS ORDERED: Famotidine/PF 20 mg/2ml Vial SLOW IVP SCH (09:00)
[2022-02-06] MEDS ORDERED: Prevnar 13-Val Conj/PF 0.5 ML SYRINGE IM ONE (09:00)
[2022-02-06] MEDS ORDERED: Sodium Chloride 0.9% (PF) 10 ML VIAL FS PRN (09:15)
[2022-02-06 09:41] LABS: Free T4 (Free Thyroxine) 1.11 ng/dL (0.70-1.48)
[2022-02-06] MEDS ORDERED: Potassium Chloride 20 MEQ TAB PO SCH (10:45)
[2022-02-06] MEDS: Dexamethasone 10 MG/ML VIAL SLOW IVP SCH ×2 (12:17→21:11)
[2022-02-06] MEDS: Benzonatate 100 MG CAP PO PRN ×2 (12:18→21:39)
[2022-02-06] MEDS: Guaifenesin DM 100-10/5 ML UDCUP PO PRN ×2 (13:26→22:07)
[2022-02-06] MEDS ORDERED: Amlodipine 10 MG TAB PO SCH (15:30)
[2022-02-06] MEDS ORDERED: Lisinopril 10 MG TAB PO SCH (15:30)
[2022-02-06 15:39] LABS: Troponin I 4.994 ng/mL (< 0.028)
[2022-02-06] MEDS: Sodium Chloride 0.9% 1,000 ML IV SCH (16:11)
[2022-02-06] MEDS: Carvedilol 25 MG TAB PO SCH (17:02)
[2022-02-06] MEDS: Lisinopril 10 MG TAB PO SCH (21:11)
[2022-02-07] MEDS: Acetaminophen 325 MG TAB PO PRN (02:34)
[2022-02-07] MEDS: Guaifenesin DM 100-10/5 ML UDCUP PO PRN ×4 (03:35→20:39)
[2022-02-07 03:55] LABS: #Lymphocytes 1.1 thou/uL (1.20-3.40); #Monocytes 0.2 thou/uL (0.11-0.59); #Neutrophils 8.5 thou/uL (1.40-6.50); %Basophils 0.1 % (0.0-1.0); %Lymphocytes 11.5 % (21.0-51.0); %Monocytes 2.2 % (0.0-10.0); %Neutrophils 86.2 % (42.0-75.0); Hemoglobin 13.3 g/dL (12.0-16.0); Mean Corpuscular HGB CONC 31.8 g/dL (32.0-36.0); Mean Corpuscular Volume 97.2 fL (78.0-98.0); Platelet Count 411 thou/uL (130-400); RBC Distribution Width 12.2 % (11.5-14.5); White Blood Cell (WBC) Count 9.9 thou/uL (4.8-10.8)
[2022-02-07 04:14] LABS: Amphetamine Not Detected (NotDetected); Barbiturates Screen Not Detected (NotDetected); Benzodiazepine Screen Not Detected (NotDetected); Cocaine Metabolite Screen Detected (NotDetected); Methadone Not Detected (NotDetected); Methamphetamine Not Detected (NotDetected); Opiate Screen Detected (NotDetected); Oxycodone Screen Not Detected (NotDetected); Phencyclidine (PCP) Not Detected (NotDetected); THC/Cannabinoid Screen Detected (NotDetected); Tricyclic Screen Not Detected (NotDetected)
[2022-02-07 04:16] LABS: Hemoglobin A1c 5.5 % (4.0-6.0)
[2022-02-07 04:19] LABS: ALT (SGPT) 14 U/L (8-55); AST (SGOT) 39 U/L (5-34); Albumin 3.8 g/dL (3.5-5.0); Alkaline Phosphatase 81 U/L (40-110); Anion Gap 17 mmol/L (10-20); BUN (Urea Nitrogen) 10 mg/dL (7.0-18.7); Bilirubin, Total 0.2 mg/dL (0.2-1.2); Calc. Creatinine Clearance 153 mL/min (70-130); Calcium 9.2 mg/dL (7.8-10.44); Carbon Dioxide 18 mmol/L (22-29); Cardiac Risk 3.9 (Less than 4.5); Chloride 104 mmol/L (98-107); Cholesterol 221 mg/dl (< 200 Desired); Estimated GFR 90; Globulin 3.4 g/dL (2.4-3.5); Glucose 168 mg/dL (70-105); HDL Cholesterol 56 mg/dL (>60 Neg Risk); LDL Cholesterol, Calculated 141 mg/dL; Potassium 4.7 mmol/L (3.5-5.1); Protein, Total 7.2 g/dL (6.0-8.3); Sodium 134 mmol/L (136-145); Triglycerides 121 mg/dL (Less than 150)
[2022-02-07] MEDS ORDERED: Pantoprazole 40 MG VIAL IVP SCH (09:00)
[2022-02-07] MEDS ORDERED: Hydrochlorothiazide 25 MG TAB PO SCH (09:00)
[2022-02-07] MEDS: cefTRIAXone\\ROCEPHIN 1 GM in Sodium Chloride 0.9% 100 ML IVPB SCH (09:19)
[2022-02-07] MEDS: Cholecalciferol 1,000 UNITS (25 MCG) TAB PO SCH (09:20)
[2022-02-07] MEDS: Lisinopril 10 MG TAB PO SCH ×2 (09:24→20:39)
[2022-02-07] MEDS: Amlodipine 10 MG TAB PO SCH (09:24)
[2022-02-07] MEDS: Zinc Sulfate 220 MG CAP PO SCH (09:25)
[2022-02-07] MEDS: Carvedilol 25 MG TAB PO SCH ×2 (09:25→16:35)
[2022-02-07] MEDS: Aspirin 81 mg Enteric Coated Tablet PO SCH (09:25)
[2022-02-07] MEDS: Ascorbic Acid 500 mg Chewable Tablet PO SCH (09:25)
[2022-02-07] MEDS: Enoxaparin Sodium 120 MG/0.8 ML SYRINGE SC SCH ×2 (09:27→20:39)
[2022-02-07] MEDS: Dexamethasone 10 MG/ML VIAL SLOW IVP SCH ×2 (09:28→20:38)
[2022-02-07] MEDS: Ondansetron PF 4 MG/2 ML Vial IVP PRN (16:35)
[2022-02-07] MEDS: Sodium Chloride 0.9% 1,000 ML IV SCH ×2 (16:45→20:39)
[2022-02-08] MEDS: Ondansetron PF 4 MG/2 ML Vial IVP PRN (04:26)
[2022-02-08] MEDS: Sodium Chloride 0.9% 1,000 ML IV SCH ×2 (05:32→17:13)
[2022-02-08 06:46] LABS: #Lymphocytes 1.8 thou/uL (1.20-3.40); #Monocytes 0.8 thou/uL (0.11-0.59); #Neutrophils 15.5 thou/uL (1.40-6.50); %Basophils 0.1 % (0.0-1.0); %Eosinophils 0.1 % (0.0-10.0); %Monocytes 4.2 % (0.0-10.0); %Neutrophils 85.7 % (42.0-75.0); Hemoglobin 12.9 g/dL (12.0-16.0); Mean Corpuscular Hemoglobin 30.4 pg (27.0-31.0); Mean Corpuscular Volume 92.3 fL (78.0-98.0); Mean Platelet Volume 7.3 fL (7.4-10.4); Platelet Count 400 thou/uL (130-400); RBC Distribution Width 12.2 % (11.5-14.5); Red Blood Cell (RBC) Count 4.25 mill/uL (4.20-5.40)
[2022-02-08 06:49] LABS: ALT (SGPT) 14 U/L (8-55); AST (SGOT) 18 U/L (5-34); Albumin 3.6 g/dL (3.5-5.0); Alkaline Phosphatase 77 U/L (40-110); Anion Gap 15 mmol/L (10-20); BUN (Urea Nitrogen) 15 mg/dL (7.0-18.7); Bilirubin, Total 0.2 mg/dL (0.2-1.2); Calc. Creatinine Clearance 155 mL/min (70-130); Calcium 9.1 mg/dL (7.8-10.44); Carbon Dioxide 20 mmol/L (22-29); Chloride 104 mmol/L (98-107); Estimated GFR 89; Globulin 3.1 g/dL (2.4-3.5); Glucose 154 mg/dL (70-105); Potassium 4.1 mmol/L (3.5-5.1); Protein, Total 6.7 g/dL (6.0-8.3); Sodium 135 mmol/L (136-145)
[2022-02-08] MEDS: Dexamethasone 10 MG/ML VIAL SLOW IVP SCH (08:00)
[2022-02-08] MEDS: cefTRIAXone\\ROCEPHIN 1 GM in Sodium Chloride 0.9% 100 ML IVPB SCH (08:00)
[2022-02-08] MEDS: Ascorbic Acid 500 mg Chewable Tablet PO SCH (08:01)
[2022-02-08] MEDS: Cholecalciferol 1,000 UNITS (25 MCG) TAB PO SCH (08:03)
[2022-02-08] MEDS: Aspirin 81 mg Enteric Coated Tablet PO SCH (08:03)
[2022-02-08] MEDS: Zinc Sulfate 220 MG CAP PO SCH (08:03)
[2022-02-08] MEDS: Lisinopril 10 MG TAB PO SCH (08:03)
[2022-02-08] MEDS: Amlodipine 10 MG TAB PO SCH (08:03)
[2022-02-08] MEDS: Carvedilol 25 MG TAB PO SCH ×2 (08:04→17:13)
[2022-02-08] MEDS: Enoxaparin Sodium 120 MG/0.8 ML SYRINGE SC SCH ×2 (08:09→21:11)
[2022-02-08] MEDS ORDERED: Lisinopril 10 MG TAB PO SCH (08:34)
[2022-02-08] MEDS: Lisinopril 20 MG TAB PO SCH ×2 (09:15→21:12)
[2022-02-08] MEDS: Nitroglycerin 0.4 MG TAB (25 Tab Bottle) SL PRN (09:20)
[2022-02-08 11:24] LABS: Lactic Acid 1.1 mmol/L (0.5-2.2)
[2022-02-08] MEDS: Nitroglycerin 2% Ointment 1 INCH/1 GM Packet TOP SCH (21:12)
[2022-02-08] MEDS: Atorvastatin Calcium 40 MG TAB PO SCH (21:12)
[2022-02-09 04:51] LABS: ALT (SGPT) 12 U/L (8-55); AST (SGOT) 13 U/L (5-34); Albumin 3.4 g/dL (3.5-5.0); Alkaline Phosphatase 69 U/L (40-110); Anion Gap 11 mmol/L (10-20); BUN (Urea Nitrogen) 18 mg/dL (7.0-18.7); Bilirubin, Total 0.2 mg/dL (0.2-1.2); Calc. Creatinine Clearance 159 mL/min (70-130); Calcium 9.1 mg/dL (7.8-10.44); Carbon Dioxide 24 mmol/L (22-29); Chloride 103 mmol/L (98-107); Estimated GFR 91; Globulin 2.8 g/dL (2.4-3.5); Glucose 124 mg/dL (70-105); Protein, Total 6.2 g/dL (6.0-8.3); Sodium 134 mmol/L (136-145)
[2022-02-09 04:53] LABS: #Lymphocytes 1.9 thou/uL (1.20-3.40); #Neutrophils 11.4 thou/uL (1.40-6.50); %Basophils 0.1 % (0.0-1.0); %Eosinophils 0.1 % (0.0-10.0); %Lymphocytes 13.3 % (21.0-51.0); %Monocytes 6.9 % (0.0-10.0); %Neutrophils 79.6 % (42.0-75.0); Hemoglobin 12.7 g/dL (12.0-16.0); Mean Corpuscular HGB CONC 33.2 g/dL (32.0-36.0); Mean Corpuscular Hemoglobin 31.4 pg (27.0-31.0); Mean Corpuscular Volume 94.5 fL (78.0-98.0); Mean Platelet Volume 7.2 fL (7.4-10.4); Platelet Count 383 thou/uL (130-400); RBC Distribution Width 11.9 % (11.5-14.5); Red Blood Cell (RBC) Count 4.05 mill/uL (4.20-5.40); White Blood Cell (WBC) Count 14.3 thou/uL (4.8-10.8)
[2022-02-09] MEDS: Nitroglycerin 2% Ointment 1 INCH/1 GM Packet TOP SCH ×3 (05:44→21:10)
[2022-02-09] MEDS: Zinc Sulfate 220 MG CAP PO SCH (08:45)
[2022-02-09] MEDS: Cholecalciferol 1,000 UNITS (25 MCG) TAB PO SCH (08:45)
[2022-02-09] MEDS: Ascorbic Acid 500 mg Chewable Tablet PO SCH (08:46)
[2022-02-09] MEDS: Lisinopril 20 MG TAB PO SCH ×2 (08:46→19:44)
[2022-02-09] MEDS: Amlodipine 10 MG TAB PO SCH (08:46)
[2022-02-09] MEDS: Aspirin 81 mg Enteric Coated Tablet PO SCH (08:47)
[2022-02-09] MEDS: Carvedilol 25 MG TAB PO SCH ×2 (08:47→16:24)
[2022-02-09] MEDS: Enoxaparin Sodium 120 MG/0.8 ML SYRINGE SC SCH (08:47)
[2022-02-09] MEDS: Ondansetron PF 4 MG/2 ML Vial IVP PRN (11:25)
[2022-02-09] MEDS ORDERED: hydrALAZINE 20 MG/ML VIAL SLOW IVP PRN (11:43)
[2022-02-09] MEDS ORDERED: hydrALAZINE 25 MG TAB PO SCH (16:00)
[2022-02-09] MEDS: Sodium Chloride 0.9% 1,000 ML IV SCH (16:28)
[2022-02-09] MEDS ORDERED: Communication Order-Pharmacy FS SCH (19:00)
[2022-02-09] MEDS: hydrALAZINE 25 MG TAB PO SCH (19:44)
[2022-02-09] MEDS: Atorvastatin Calcium 40 MG TAB PO SCH (19:44)
[2022-02-09] MEDS ORDERED: NIFEdipine XL 60 MG TAB PO SCH (20:00)
[2022-02-09] MEDS ORDERED: diphenhydrAMINE 25 MG CAP PO PRN (23:43)
[2022-02-10] MEDS: Nitroglycerin 2% Ointment 1 INCH/1 GM Packet TOP SCH (01:53)
[2022-02-10 04:14] LABS: #Eosinphils 0.1 thou/uL (0.0-0.7); #Lymphocytes 4.5 thou/uL (1.20-3.40); #Monocytes 1.1 thou/uL (0.11-0.59); #Neutrophils 6.7 thou/uL (1.40-6.50); %Basophils 0.1 % (0.0-1.0); %Eosinophils 0.8 % (0.0-10.0); %Lymphocytes 36.1 % (21.0-51.0); %Monocytes 9.1 % (0.0-10.0); %Neutrophils 53.9 % (42.0-75.0); Mean Corpuscular HGB CONC 33.1 g/dL (32.0-36.0); Mean Corpuscular Hemoglobin 30.8 pg (27.0-31.0); Mean Corpuscular Volume 93.2 fL (78.0-98.0); Mean Platelet Volume 7.2 fL (7.4-10.4); Platelet Count 385 thou/uL (130-400); RBC Distribution Width 12.1 % (11.5-14.5); Red Blood Cell (RBC) Count 4.21 mill/uL (4.20-5.40); White Blood Cell (WBC) Count 12.5 thou/uL (4.8-10.8)
[2022-02-10 04:34] LABS: ALT (SGPT) 12 U/L (8-55); AST (SGOT) 12 U/L (5-34); Albumin 3.3 g/dL (3.5-5.0); Alkaline Phosphatase 69 U/L (40-110); Anion Gap 14 mmol/L (10-20); BUN (Urea Nitrogen) 16 mg/dL (7.0-18.7); Bilirubin, Total 0.2 mg/dL (0.2-1.2); Calc. Creatinine Clearance 159 mL/min (70-130); Calcium 8.8 mg/dL (7.8-10.44); Carbon Dioxide 23 mmol/L (22-29); Chloride 103 mmol/L (98-107); Estimated GFR 91; Globulin 2.7 g/dL (2.4-3.5); Glucose 101 mg/dL (70-105); Potassium 3.5 mmol/L (3.5-5.1); Sodium 136 mmol/L (136-145)
[2022-02-10] MEDS ORDERED: Sodium Chloride 0.9% 1,000 ML IV SCH ×2 (06:00→07:57)
[2022-02-10] MEDS: Aspirin 81 mg Enteric Coated Tablet PO SCH (06:10)
[2022-02-10] MEDS: hydrALAZINE 25 MG TAB PO SCH ×2 (06:10→20:44)
[2022-02-10] MEDS: Carvedilol 25 MG TAB PO SCH ×2 (06:10→18:04)
[2022-02-10] MEDS: NIFEdipine XL 60 MG TAB PO SCH (06:10)
[2022-02-10] MEDS: Lisinopril 20 MG TAB PO SCH ×2 (06:10→20:44)
[2022-02-10] MEDS ORDERED: Lidocaine 1% (PF) 30 ML VIAL ONE (06:34)
[2022-02-10] MEDS ORDERED: Heparin 10,000 UNITS/ 10 ML VIAL ONE (07:07)
[2022-02-10] MEDS ORDERED: Midazolam HCl 2 mg/2 ml Vial ONE (07:09)
[2022-02-10] MEDS ORDERED: Fentanyl 100 MCG/2 ML VIAL ONE (07:17)
[2022-02-10] MEDS ORDERED: Protamine Sulfate 50 MG/5 ML VIAL ONE (07:38)
[2022-02-10] MEDS ORDERED: Acetaminophen/Codeine 30-300mg Tablet PO PRN ×2 (07:57)
[2022-02-10] MEDS ORDERED: Sodium Chloride 0.9% 200 ML IV PRN (07:57)
[2022-02-10] MEDS ORDERED: Nitroglycerin 0.4 MG TAB (25 Tab Bottle) SL PRN (07:57)
[2022-02-10] MEDS ORDERED: Potassium Chloride 20 MEQ TAB PO SCH (09:00)
[2022-02-10] MEDS: Cholecalciferol 1,000 UNITS (25 MCG) TAB PO SCH (10:18)
[2022-02-10] MEDS: Zinc Sulfate 220 MG CAP PO SCH (10:20)
[2022-02-10] MEDS ORDERED: Iopamidol 370 76% 50 ML VIAL FS ONE (10:35)
[2022-02-10] MEDS ORDERED: Iopamidol 370 76% 100 ML VIAL ONE (10:35)
[2022-02-10] MEDS: Ascorbic Acid 500 mg Chewable Tablet PO SCH (11:27)
[2022-02-10] MEDS ORDERED: HYDROmorphone 0.5 MG/0.5 ML SYRINGE SLOW IVP SCH (16:45)
[2022-02-10] MEDS: Atorvastatin Calcium 40 MG TAB PO SCH (20:44)
[2022-02-11 04:44] LABS: #Basophils 0.1 thou/uL (0.0-0.2); #Eosinphils 0.1 thou/uL (0.0-0.7); #Lymphocytes 3.1 thou/uL (1.20-3.40); #Monocytes 0.8 thou/uL (0.11-0.59); #Neutrophils 6.3 thou/uL (1.40-6.50); %Basophils 0.5 % (0.0-1.0); %Eosinophils 1.2 % (0.0-10.0); %Neutrophils 60.4 % (42.0-75.0); Hemoglobin 12.7 g/dL (12.0-16.0); Mean Corpuscular HGB CONC 33.1 g/dL (32.0-36.0); Mean Corpuscular Hemoglobin 31.4 pg (27.0-31.0); Mean Corpuscular Volume 94.8 fL (78.0-98.0); Mean Platelet Volume 7.1 fL (7.4-10.4); Platelet Count 336 thou/uL (130-400); Red Blood Cell (RBC) Count 4.04 mill/uL (4.20-5.40); White Blood Cell (WBC) Count 10.4 thou/uL (4.8-10.8)
[2022-02-11 05:05] LABS: ALT (SGPT) 14 U/L (8-55); AST (SGOT) 13 U/L (5-34); Albumin 3.3 g/dL (3.5-5.0); Alkaline Phosphatase 56 U/L (40-110); Anion Gap 10 mmol/L (10-20); BUN (Urea Nitrogen) 10 mg/dL (7.0-18.7); Bilirubin, Total 0.3 mg/dL (0.2-1.2); Calc. Creatinine Clearance 138 mL/min (70-130); Calcium 8.9 mg/dL (7.8-10.44); Carbon Dioxide 30 mmol/L (22-29); Chloride 101 mmol/L (98-107); Estimated GFR 77; Globulin 2.6 g/dL (2.4-3.5); Glucose 88 mg/dL (70-105); Potassium 3.8 mmol/L (3.5-5.1); Protein, Total 5.9 g/dL (6.0-8.3); Sodium 137 mmol/L (136-145)
[2022-02-11] MEDS: Acetaminophen 325 MG TAB PO PRN (06:05)
[2022-02-11] MEDS: Ascorbic Acid 500 mg Chewable Tablet PO SCH (10:08)
[2022-02-11] MEDS: Aspirin 81 mg Enteric Coated Tablet PO SCH (10:08)
[2022-02-11] MEDS: Zinc Sulfate 220 MG CAP PO SCH (10:08)
[2022-02-11] MEDS: hydrALAZINE 25 MG TAB PO SCH ×2 (10:09→20:29)
[2022-02-11] MEDS: NIFEdipine XL 60 MG TAB PO SCH (10:09)
[2022-02-11] MEDS: Lisinopril 20 MG TAB PO SCH ×2 (10:09→20:29)
[2022-02-11] MEDS: Cholecalciferol 1,000 UNITS (25 MCG) TAB PO SCH (10:09)
[2022-02-11] MEDS: Carvedilol 25 MG TAB PO SCH ×2 (10:10→17:24)
[2022-02-11] MEDS: Lactated Ringer's 1,000 ML IV SCH (15:18)
[2022-02-11] MEDS: Atorvastatin Calcium 40 MG TAB PO SCH (20:29)
[2022-02-12 05:21] LABS: ALT (SGPT) 18 U/L (8-55); AST (SGOT) 16 U/L (5-34); Albumin 3.3 g/dL (3.5-5.0); Alkaline Phosphatase 70 U/L (40-110); Anion Gap 13 mmol/L (10-20); BUN (Urea Nitrogen) 11 mg/dL (7.0-18.7); Bilirubin, Total 0.2 mg/dL (0.2-1.2); Calc. Creatinine Clearance 156 mL/min (70-130); Calcium 9.2 mg/dL (7.8-10.44); Carbon Dioxide 26 mmol/L (22-29); Chloride 100 mmol/L (98-107); Estimated GFR 90; Globulin 2.8 g/dL (2.4-3.5); Glucose 103 mg/dL (70-105); Potassium 3.8 mmol/L (3.5-5.1); Protein, Total 6.1 g/dL (6.0-8.3); Sodium 135 mmol/L (136-145)
[2022-02-12 05:25] LABS: Band 3 % (5-11); Eosinophils 1 % (0-10); Hemoglobin 13.5 g/dL (12.0-16.0); Lymphocytes 19 % (21-51); MDiff Complete? YES; Mean Corpuscular HGB CONC 32.1 g/dL (32.0-36.0); Mean Corpuscular Hemoglobin 30.5 pg (27.0-31.0); Mean Corpuscular Volume 94.9 fL (78.0-98.0); Mean Platelet Volume 7.6 fL (7.4-10.4); Monocytes 6 % (0-10); Neutrophil 71 % (42-75); Platelet Count 355 thou/uL (130-400); Platelet Morphology Comment Appears Adequate; RBC Morphology Normal; Red Blood Cell (RBC) Count 4.42 mill/uL (4.20-5.40)
[2022-02-12] MEDS: Lactated Ringer's 1,000 ML IV SCH (05:27)
[2022-02-12 08:02] VITALS: TEMP 98.6
[2022-02-12] MEDS: Zinc Sulfate 220 MG CAP PO SCH (10:23)
[2022-02-12] MEDS: Carvedilol 25 MG TAB PO SCH (10:23)
[2022-02-12] MEDS: hydrALAZINE 25 MG TAB PO SCH (10:23)
[2022-02-12] MEDS: Lisinopril 20 MG TAB PO SCH (10:23)
[2022-02-12] MEDS: Ascorbic Acid 500 mg Chewable Tablet PO SCH (10:24)
[2022-02-12] MEDS: Aspirin 81 mg Enteric Coated Tablet PO SCH (10:24)
[2022-02-12] MEDS: NIFEdipine XL 60 MG TAB PO SCH (10:24)
[2022-02-12] MEDS: Cholecalciferol 1,000 UNITS (25 MCG) TAB PO SCH (10:24)
[2022-02-12 12:51] VITALS: BP 131/76
== END 2022-02-12 16:41 | disposition home or self-care (01) | DRG 917 ==
LOC: ERS 15:43 → CCU 17:28 → 2NO 02-07 19:02
PROVIDERS: ADMIT Internal Medicine; ATTEND Internal Medicine
PROC: 8E0ZXY6 Isolation (ICD-10-PCS; 2022-02-05)
PROC: 4A023N7 Measurement of Cardiac Sampling and Pressure, Left Heart, Percutaneous Approach (ICD-10-PCS; principal; 2022-02-10)
PROC: B2151ZZ Fluoroscopy of Left Heart using Low Osmolar Contrast (ICD-10-PCS; 2022-02-10)
PROC: B2111ZZ Fluoroscopy of Multiple Coronary Arteries using Low Osmolar Contrast (ICD-10-PCS; 2022-02-10)
DX: T40.5X1A Poisoning by cocaine, accidental (unintentional), initial encounter (principal); U07.1 COVID-19; I21.A1 Myocardial infarction type 2; I16.1 Hypertensive emergency; N39.0 Urinary tract infection, site not specified; Z68.42 Body mass index [BMI] 45.0-49.9, adult; F41.9 Anxiety disorder, unspecified; I10 Essential (primary) hypertension; F19.10 Other psychoactive substance abuse, uncomplicated; E66.01 Morbid (severe) obesity due to excess calories; F12.10 Cannabis abuse, uncomplicated; F14.10 Cocaine abuse, uncomplicated; Z98.51 Tubal ligation status; Z91.14 Patient's other noncompliance with medication regimen; Z82.49 Family history of ischemic heart disease and other diseases of the circulatory system; Z28.21 Immunization not carried out because of patient refusal; Z79.899 Other long term (current) drug therapy
CPT/HCPCS: 36415; 36416; 71045; 76936; 80053; 80061; 80306; 81001; 82550; 83036; 83605; 83690; 83735; 83880; 84439; 84443; 84481; 84484; 84703; 85025; 85347; 85520; 87086; 87186; 93005; 93010; 93306; 93458; 93798; 96365; 96375; 97139; 99152; C1769; C9113; J0360; J0696; J1100; J1170; J1644; J1650; J2001; J2250; J2270; J2405; J2720; J3010; J3475; J3490; J7050; J7120; Q9967; S0028; U0002

== ENCOUNTER 2022-04-03 07:39 | Emergency (ER) | payer OTHER, SELFPAY ==
[2022-04-03] MEDS ORDERED: Hydrocodone-Acetamin 15 ML UDCUP ONE (08:39)
[2022-04-03] MEDS ORDERED: HYDROcodone/Acetaminophen 7.5/325 mg Tablet ONE (08:39)
== END 2022-04-03 08:46 | disposition home or self-care (01) ==
LOC: ERS 07:39
DX: K08.89 Other specified disorders of teeth and supporting structures (principal); I10 Essential (primary) hypertension
CPT/HCPCS: 99282

== ENCOUNTER 2022-05-05 09:22 | Emergency (ER) | payer OTHER ==
[2022-05-05 10:29] LABS: #Eosinphils 0.1 thou/uL (0.0-0.7); #Lymphocytes 1.1 thou/uL (1.20-3.40); #Monocytes 0.6 thou/uL (0.11-0.59); #Neutrophils 2.3 thou/uL (1.40-6.50); %Basophils 0.5 % (0.0-1.0); %Eosinophils 1.6 % (0.0-10.0); %Lymphocytes 26.9 % (21.0-51.0); %Monocytes 14.8 % (0.0-10.0); %Neutrophils 56.3 % (42.0-75.0); Hemoglobin 12.3 g/dL (12.0-16.0); Mean Corpuscular HGB CONC 32.1 g/dL (32.0-36.0); Mean Corpuscular Hemoglobin 29.6 pg (27.0-31.0); Mean Corpuscular Volume 92.3 fL (78.0-98.0); Mean Platelet Volume 7.4 fL (7.4-10.4); Platelet Count 322 thou/uL (130-400); Red Blood Cell (RBC) Count 4.17 mill/uL (4.20-5.40); White Blood Cell (WBC) Count 4.2 thou/uL (4.8-10.8)
[2022-05-05 10:52] LABS: ALT (SGPT) 12 U/L (8-55); AST (SGOT) 16 U/L (5-34); Albumin 4.4 g/dL (3.5-5.0); Alkaline Phosphatase 83 U/L (40-110); Anion Gap 12 mmol/L (10-20); BUN (Urea Nitrogen) 11 mg/dL (7.0-18.7); Bilirubin, Total 0.2 mg/dL (0.2-1.2); Calc. Creatinine Clearance 0 mL/min (70-130); Calcium 9.7 mg/dL (7.8-10.44); Carbon Dioxide 27 mmol/L (22-29); Chloride 101 mmol/L (98-107); Estimated GFR 85; Globulin 3.2 g/dL (2.4-3.5); Glucose 91 mg/dL (70-105); Potassium 3.8 mmol/L (3.5-5.1); Protein, Total 7.6 g/dL (6.0-8.3); Sodium 136 mmol/L (136-145)
[2022-05-05] MEDS ORDERED: Iopamidol-370 76% 500 ML 1 ML ONE (11:14)
== END 2022-05-05 10:22 | disposition home or self-care (01) ==
LOC: ERS 09:22
DX: J20.9 Acute bronchitis, unspecified (principal); Z20.822 Contact with and (suspected) exposure to COVID-19
CPT/HCPCS: 36415; 71045; 71275; 74177; 80053; 83880; 84484; 85025; 87804; 93005; 94760; Q9967; U0003; U0005

== ENCOUNTER 2023-07-17 08:02 | Observation (INO) | payer OTHER ==
[2023-07-17] MEDS ORDERED: Ketorolac Tromethamine 30 MG (1 mL) VIAL ONE (08:33)
[2023-07-17] MEDS ORDERED: Ondansetron PF 4 MG/2 ML Vial ONE (08:47)
[2023-07-17 08:53] LABS: #Eosinphils 0.2 thou/uL (0.0-0.7); #Monocytes 0.6 thou/uL (0.11-0.59); #Neutrophils 5.1 thou/uL (1.40-6.50); %Basophils 0.5 % (0.0-1.0); %Eosinophils 2.5 % (0.0-10.0); %Lymphocytes 25.7 % (21.0-51.0); %Monocytes 7.5 % (0.0-10.0); %Neutrophils 63.5 % (42.0-75.0); Hematocrit 39.7 % (36.0-47.0); Hemoglobin 12.9 g/dL (12.0-16.0); Mean Corpuscular HGB CONC 32.5 g/dL (32.0-36.0); Mean Corpuscular Hemoglobin 29.1 pg (27.0-31.0); Mean Corpuscular Volume 89.6 fl (78.0-98.0); Mean Platelet Volume 9.8 fL (7.4-10.4); Platelet Count 361 10x3/uL (130-400); RBC Distribution Width 13.2 % (11.5-14.5); Red Blood Cell (RBC) Count 4.43 mill/uL (4.20-5.40)
[2023-07-17 09:18] LABS: ALT (SGPT) 15 U/L (8-55); AST (SGOT) 20 U/L (5-34); Albumin 3.9 g/dL (3.5-5.0); Alkaline Phosphatase 109 U/L (40-110); Anion Gap 14 mmol/L (10-20); BUN (Urea Nitrogen) 13 mg/dL (7.0-18.7); Bilirubin, Total 0.4 mg/dL (0.2-1.2); Calc. Creatinine Clearance 0 mL/min (70-130); Calcium 8.9 mg/dL (7.8-10.44); Carbon Dioxide 26 mmol/L (22-29); Chloride 101 mmol/L (98-107); Estimated GFR 76; Globulin 3.4 g/dL (2.4-3.5); Glucose 97 mg/dL (70-105); Lipase 24 U/L (8-78); Potassium 3.8 mmol/L (3.5-5.1); Protein, Total 7.3 g/dL (6.0-8.3); Sodium 137 mmol/L (136-145)
[2023-07-17 10:20] LABS: Bacteria/HPF None Seen HPF (None Seen); Bilirubin Negative (Negative); Blood, Urine Negative (Negative); CAUTI Indications for Culture Pelvic or flank pain; Clarity Clear (Clear); Glucose, Urine (Dipstick) Normal (Negative); Ketone, Urine Negative (Negative); Leukocyte Negative Leu/uL (Negative); Nitrite Negative (Negative); Protein, Urine (Dipstick) Negative (Neg-Trace); RBC/HPF 0-3 HPF (0-3); Specific Gravity, Urine 1.025 (1.002-1.036); Squamous Epithelial 0-3 HPF (0-3); Urobilinogen Normal mg/dL (Less than 2); WBC/HPF 0-3 HPF (0-3); pH, Urine 6.5 (5.0-9.0)
[2023-07-17 10:21] LABS: Urine Culture Reflex No No
[2023-07-17 10:22] LABS: Pregnancy Test - Urine (BHCG) Negative (Negative); Pregu Control Background? CLEAR/WHITE (CLR/WHITE); Pregu Control Bar Appear? YES (CONTROL BAR); Specific Gravity 1.025 (1.002-1.036)
[2023-07-17] MEDS ORDERED: Ondansetron PF 4 MG/2 ML Vial IVP PRN (12:03)
[2023-07-17] MEDS ORDERED: traMADol HCl 50 MG TAB PO PRN ×2 (12:03→15:08)
[2023-07-17] MEDS ORDERED: TETANUS, DIPHTHERIA TOX,ADULT (TDVAX) 0.5 ML VIAL IM ONE (12:03)
[2023-07-17] MEDS ORDERED: Ketorolac Tromethamine 30 MG (1 mL) VIAL IVP PRN ×2 (12:05→18:00)
[2023-07-17 12:31] VITALS: BMI 44.0
[2023-07-17] MEDS ORDERED: LevoFLOXacin 750 mg/D5W 750 MG in Premix 1 BAG IVPB SCH (13:00)
[2023-07-17] MEDS: Acetaminophen 500 MG TAB PO SCH ×3 (13:10→20:11)
[2023-07-17] MEDS ORDERED: Sterile Water 10 ML ONE (13:58)
[2023-07-17] MEDS ORDERED: Bacteriostatic Normal Saline 30 ML VIAL ONE (13:59)
[2023-07-17] MEDS: Sodium Chloride 0.9% 1,000 ML IV SCH (15:24)
[2023-07-17] MEDS ORDERED: NIFEdipine XL 60 MG ER.TAB PO SCH (19:45)
[2023-07-17] MEDS ORDERED: Losartan 25 MG TAB PO SCH (19:45)
[2023-07-17] MEDS: Atorvastatin Calcium 20 MG TAB PO SCH (20:10)
[2023-07-17] MEDS: Famotidine 20 MG TAB PO SCH (20:11)
[2023-07-17] MEDS: Enoxaparin 40 MG (0.4 mL) SYRINGE SC SCH (20:11)
[2023-07-17] MEDS: Colchicine 0.6 MG TAB PO SCH (20:11)
[2023-07-17] MEDS: hydrALAZINE 10 MG TAB PO SCH (20:13)
[2023-07-17] MEDS ORDERED: hydrALAZINE 25 MG TAB PO SCH (21:00)
[2023-07-18] MEDS: Sodium Chloride 0.9% 1,000 ML IV SCH ×2 (06:31→07:54)
[2023-07-18] MEDS ORDERED: Bupivacaine PF 0.5% 30 ML VIAL ONE (06:37)
[2023-07-18] MEDS ORDERED: EPINEPHrine 1 MG/ML VIAL ONE (06:37)
[2023-07-18] MEDS ORDERED: PROPOFOL 20 ML ONE (07:04)
[2023-07-18] MEDS ORDERED: Ondansetron PF 4 MG/2 ML Vial ONE ×2 (07:05→09:26)
[2023-07-18] MEDS ORDERED: Rocuronium Bromide 10 MG/ML (10ML VIAL) ONE (07:05)
[2023-07-18] MEDS ORDERED: Lidocaine 1% PF 5 ML VIAL ONE (07:05)
[2023-07-18] MEDS ORDERED: Ketorolac Tromethamine 30 MG (1 mL) VIAL ONE (07:05)
[2023-07-18] MEDS ORDERED: fentaNYL 50 mcg/mL 1 mL Vial ONE (07:05)
[2023-07-18] MEDS ORDERED: Dexamethasone 20 MG/5 ML VIAL ONE (07:05)
[2023-07-18] MEDS ORDERED: Glycopyrrolate 0.2 MG/ML 5 ML SYRINGE ONE (08:12)
[2023-07-18] MEDS ORDERED: NEOSTIGMINE 3 MG/3 ML SYR 3 MG/3 ML SYRINGE ONE (08:12)
[2023-07-18] MEDS ORDERED: Promethazine HCl 25 MG/ML VIAL IM PRN (08:15)
[2023-07-18] MEDS ORDERED: Morphine Sulfate 2 MG/ML SYRINGE SLOW IVP PRN (08:15)
[2023-07-18] MEDS ORDERED: PACU-Morphine 4MG/ML VIAL SLOW IVP PRN (08:15)
[2023-07-18] MEDS ORDERED: HYDROmorphone 2 MG/ML VIAL SLOW IVP PRN (08:15)
[2023-07-18] MEDS ORDERED: Ondansetron HCl/PF 4 MG/2 ML Vial IVP PRN (08:15)
[2023-07-18] MEDS ORDERED: Labetalol HCl 100 MG/20 ML VIAL ONE (08:33)
[2023-07-18] MEDS ORDERED: Ibuprofen 600 MG TAB PO PRN (08:33)
[2023-07-18] MEDS ORDERED: fentaNYL PF 100 MCG/2 ML SYRINGE ONE (08:36)
[2023-07-18] MEDS: NIFEdipine XL 60 MG ER.TAB PO SCH (11:07)
[2023-07-18] MEDS: Famotidine 20 MG TAB PO SCH ×2 (11:07→20:21)
[2023-07-18] MEDS: Multivitamin W/ Minerals 1 TAB PO SCH (11:07)
[2023-07-18] MEDS: Acetaminophen 500 MG TAB PO SCH ×4 (11:08→20:21)
[2023-07-18] MEDS: Losartan 25 MG TAB PO SCH (11:08)
[2023-07-18] MEDS: hydrALAZINE 10 MG TAB PO SCH ×2 (11:08→20:18)
[2023-07-18] MEDS: Colchicine 0.6 MG TAB PO SCH ×2 (11:08→20:21)
[2023-07-18] MEDS: Enoxaparin 40 MG (0.4 mL) SYRINGE SC SCH (20:17)
[2023-07-18] MEDS: Atorvastatin Calcium 20 MG TAB PO SCH (20:21)
[2023-07-19 07:28] LABS: #Monocytes 0.7 thou/uL (0.11-0.59); #Neutrophils 9.4 thou/uL (1.40-6.50); %Basophils 0.3 % (0.0-1.0); %Eosinophils 0.2 % (0.0-10.0); %Lymphocytes 18.9 % (21.0-51.0); %Monocytes 5.8 % (0.0-10.0); %Neutrophils 74.3 % (42.0-75.0); Hematocrit 40.4 % (36.0-47.0); Hemoglobin 12.5 g/dL (12.0-16.0); Mean Corpuscular HGB CONC 30.9 g/dL (32.0-36.0); Mean Corpuscular Hemoglobin 28.9 pg (27.0-31.0); Mean Corpuscular Volume 93.5 fl (78.0-98.0); Mean Platelet Volume 10.9 fL (7.4-10.4); Platelet Count 297 10x3/uL (130-400); RBC Distribution Width 13.3 % (11.5-14.5); Red Blood Cell (RBC) Count 4.32 mill/uL (4.20-5.40); White Blood Cell (WBC) Count 12.7 10x3/uL (4.8-10.8)
[2023-07-19 07:43] LABS: ALT (SGPT) 21 U/L (8-55); AST (SGOT) 31 U/L (5-34); Albumin 3.7 g/dL (3.5-5.0); Alkaline Phosphatase 83 U/L (40-110); Anion Gap 13 mmol/L (10-20); BUN (Urea Nitrogen) 8 mg/dL (7.0-18.7); Bilirubin, Total 0.3 mg/dL (0.2-1.2); Calc. Creatinine Clearance 170 mL/min (70-130); Calcium 8.9 mg/dL (7.8-10.44); Carbon Dioxide 23 mmol/L (22-29); Chloride 105 mmol/L (98-107); Estimated GFR 92; Glucose 102 mg/dL (70-105); Potassium 3.6 mmol/L (3.5-5.1); Protein, Total 6.7 g/dL (6.0-8.3); Sodium 137 mmol/L (136-145)
[2023-07-19 07:44] VITALS: BP 167/89; TEMP 98.2
[2023-07-19] MEDS: NIFEdipine XL 60 MG ER.TAB PO SCH (08:44)
[2023-07-19] MEDS: Colchicine 0.6 MG TAB PO SCH (08:44)
[2023-07-19] MEDS: Famotidine 20 MG TAB PO SCH (08:44)
[2023-07-19] MEDS: Multivitamin W/ Minerals 1 TAB PO SCH (08:44)
[2023-07-19] MEDS: Losartan 25 MG TAB PO SCH (08:45)
[2023-07-19] MEDS: Acetaminophen 500 MG TAB PO SCH (08:45)
[2023-07-19] MEDS: hydrALAZINE 10 MG TAB PO SCH (11:22)
== END 2023-07-19 11:19 | disposition home or self-care (01) ==
LOC: ERS 08:02 → SJJU 10:59 → INTOOBSV 10:59 → OBSVTOIN 11:00 → INTOOBSV 11:00
PROVIDERS: ADMIT Specialist; ATTEND Specialist
PROC: 0FT44ZZ Resection of Gallbladder, Percutaneous Endoscopic Approach (ICD-10-PCS; principal; 2023-07-19)
DX: K81.1 Chronic cholecystitis (principal); K82.8 Other specified diseases of gallbladder; Z98.51 Tubal ligation status
CPT/HCPCS: 36415; 76705; 78227; 80053; 81001; 81025; 83690; 84484; 85025; 88304; 93005; 96374; 96375; A9537; C1889; J0171; J1100; J1650; J1885; J1956; J2405; J2704; J3010; J7050; S0020

== ENCOUNTER 2023-09-09 18:29 | Emergency (ER) | payer OTHER ==
[2023-09-09 19:39] LABS: #Eosinphils 0.2 thou/uL (0.0-0.7); #Monocytes 0.5 thou/uL (0.11-0.59); #Neutrophils 4.5 thou/uL (1.40-6.50); %Basophils 0.4 % (0.0-1.0); %Eosinophils 2.1 % (0.0-10.0); %Lymphocytes 34.8 % (21.0-51.0); %Monocytes 6.8 % (0.0-10.0); %Neutrophils 55.8 % (42.0-75.0); Hematocrit 35.8 % (36.0-47.0); Hemoglobin 11.8 g/dL (12.0-16.0); Mean Corpuscular Hemoglobin 29.7 pg (27.0-31.0); Mean Corpuscular Volume 90.2 fl (78.0-98.0); Mean Platelet Volume 9.3 fL (7.4-10.4); Platelet Count 336 10x3/uL (130-400); RBC Distribution Width 13.5 % (11.5-14.5); Red Blood Cell (RBC) Count 3.97 mill/uL (4.20-5.40)
[2023-09-09 19:57] LABS: ALT (SGPT) 13 U/L (8-55); AST (SGOT) 13 U/L (5-34); Albumin 3.8 g/dL (3.5-5.0); Alkaline Phosphatase 89 U/L (40-110); Anion Gap 11 mmol/L (10-20); BUN (Urea Nitrogen) 15 mg/dL (7.0-18.7); Bilirubin, Total 0.2 mg/dL (0.2-1.2); Calc. Creatinine Clearance 0 mL/min (70-130); Calcium 9.1 mg/dL (7.8-10.44); Carbon Dioxide 27 mmol/L (22-29); Chloride 105 mmol/L (98-107); Estimated GFR 67; Globulin 2.8 g/dL (2.4-3.5); Glucose 97 mg/dL (70-105); Potassium 3.8 mmol/L (3.5-5.1); Protein, Total 6.6 g/dL (6.0-8.3); Sodium 139 mmol/L (136-145)
[2023-09-09 20:01] LABS: Troponin I Less than 0.010 ng/mL (< 0.028)
[2023-09-09] MEDS ORDERED: Ketorolac Tromethamine 30 MG (1 mL) VIAL ONE (21:11)
== END 2023-09-09 21:36 | disposition home or self-care (01) ==
LOC: ERS 18:29
DX: M54.12 Radiculopathy, cervical region (principal); M25.512 Pain in left shoulder; I10 Essential (primary) hypertension; E66.01 Morbid (severe) obesity due to excess calories; Z79.899 Other long term (current) drug therapy
CPT/HCPCS: 36415; 71045; 80053; 84484; 85025; 93005; 96372; J1885

== ENCOUNTER 2023-12-20 00:20 | Emergency (ER) | payer OTHER ==
[2023-12-20] MEDS ORDERED: Famotidine 20 MG TAB ONE (01:02)
[2023-12-20] MEDS ORDERED: diphenhydrAMINE 50 MG CAP ONE (01:02)
[2023-12-20] MEDS ORDERED: Dexamethasone 4 MG TAB ONE (01:10)
[2023-12-20] MEDS ORDERED: Lisinopril 20 MG TAB ONE (01:11)
[2023-12-20] MEDS ORDERED: Losartan 25 MG TAB ONE (01:18)
[2023-12-20] MEDS ORDERED: hydrALAZINE 25 MG TAB ONE (01:22)
== END 2023-12-20 03:06 | disposition home or self-care (01) ==
LOC: ERS 00:20
DX: T78.40XA Allergy, unspecified, initial encounter (principal); I10 Essential (primary) hypertension; I25.10 Atherosclerotic heart disease of native coronary artery without angina pectoris; Z79.899 Other long term (current) drug therapy
CPT/HCPCS: 99282; J8540

== ENCOUNTER 2024-04-13 08:38 | Emergency (ER) | payer OTHER | END 2024-04-13 09:30 | disposition home or self-care (01) | LOC: ERS 08:38 | DX: H10.9 Unspecified conjunctivitis (principal); I25.2 Old myocardial infarction; I25.10 Atherosclerotic heart disease of native coronary artery without angina pectoris; E78.00 Pure hypercholesterolemia, unspecified; I10 Essential (primary) hypertension; Z86.73 Personal history of transient ischemic attack (TIA), and cerebral infarction without residual deficits; Z79.899 Other long term (current) drug therapy | CPT/HCPCS: 99282 ==

== ENCOUNTER 2024-07-08 07:27 | Emergency (ER) | payer OTHER, SELFPAY ==
[2024-07-08] MEDS ORDERED: Fluorescein Opthalmic Strip ONE (07:43)
[2024-07-08] MEDS ORDERED: Proparacaine 0.5% Opth 15 ML BOT ONE (07:44)
== END 2024-07-08 08:45 | disposition home or self-care (01) ==
LOC: ERS 07:27
DX: H10.9 Unspecified conjunctivitis (principal); I10 Essential (primary) hypertension; E78.5 Hyperlipidemia, unspecified; Z79.899 Other long term (current) drug therapy
CPT/HCPCS: 99283